=== PATIENT | male | born 1975 | race Caucasian/White ===

== ENCOUNTER → 2017-01-10 | Outpatient (CLI) | payer MEDICAID ==
[~2017-01-10] MED LIST: FLEXERIL10 MG PO; HEROIN; IBUPROFEN PO; METH; PERCOCET5/325 PO
--- NOTE | ~2017-01-10 | PN ---
Unit #: [id number] #: [id number] Patient: THEODORE MCHUGH [id number] [facility] [address] [place] [address] [id number] MR#: [id number] NAME: THEODORE MCHUGH ROOM: Age: 41 Sex: M Admission Date: 01/10/2017 : 1975 Attending Physician: Adriano Bedoya M.D. Primary Care Physician: Generic Doctor Not In System [facility] PROGRESS NOTES DATE 01/19/2017 DISCUSSION The patient is in bright spirits today. He will complete programming today and I have provided him with three refills of Vivitrol. Dictated by... Adriano Bedoya M.D. CB/gemma TD: 01/19/2017 12:11 JOB #: [id number] [facility] PROGRESS NOTES Page 1 of 1 X Adriano Bedoya MD X PROGRESS NOTE
== END | disposition home or self-care (01) ==
LOC: PLAI 15:00
DX: F11.20 Opioid dependence, uncomplicated (principal); Z79.899 Other long term (current) drug therapy
CPT/HCPCS: 90853